=== PATIENT | female | born 1965 | race Caucasian/White ===

== ENCOUNTER 2016-06-15 12:58 | Emergency (ER) | payer OTHER ==
--- NOTE | 2016-06-15 15:44 | DIAGNOSTIC IMAGING REPORT ---
PROCEDURE: XR CHEST 2 VIEW INDICATION: SHORTNESS OF BREATH, initial encounter TECHNIQUE: PA and lateral view. COMPARISON: Chest x-ray 03/18/2014 FINDINGS: Small right basilar infiltrate. Cardiovascular structures are normal. Bony thorax is unremarkable. IMPRESSION: 1. Small right basilar infiltrate
--- NOTE | 2016-06-15 17:28 | DIAGNOSTIC IMAGING REPORT ---
PROCEDURE: CTA THORAX WITH CONTRAST INDICATION: SHORTNESS OF BREATH, initial encounter TECHNIQUE: 80 ml of Isovue 370 was injected intravenously and axial images were obtained of the entire thorax with 3D sagittal and coronal MIP reconstructions. COMPARISON: Chest x-ray 06/15/2016 FINDINGS: No evidence of pulmonary emboli. Mild emphysema. Small patchy infiltrates bilaterally suggestive of pneumonia. Mildly prominent mediastinal and hilar lymph nodes. There is no effusion. Mild atherosclerosis of the aorta but no dissection or aneurysm. Normal heart size. Visualized upper abdomen is unremarkable. Mild degenerative changes of the spine. IMPRESSION: 1. No evidence of prior emboli 2. Mild emphysema 3. Small bilateral patchy infiltrate suggestive of pneumonia 4. Results discussed with Dr. Jean
--- NOTE | 2016-06-15 18:39 | ED NURSING NOTES ---
Clinical Report - Nurses [facility] [address] [place] [address] 06/15/2016 12:58 Patient: RIANA HYDE TRIAGE Triage time 1328 PM. Acuity: LEVEL 4. Chief Complaint: SHORTNESS OF BREATH, DIFFICULTY BREATHING and WHEEZING and COUGH, FEVER, CHILLS and CHEST PAIN (right side rib pain). Alert. No acute distress. MANGO COMA SCORE: Mango Coma Scale: 15- eyes open spontaneously (4); best verbal response- oriented x 4 (5); best motor response- obeys commands (6). --13:40 Sushila Gardner R.N. 13:28 06/15/16. BP: 158/89. HR: 101. RR: 22. O2 saturation: 100%. Temp: 99.2 F (oral). Pain level now: 02/18. Additional comments: right sided. --13:40 Sushila Gardner R.N. Weight: 56.6 kg stated. Height/Length: 66 inches Per Patient. BMI: 20.1. --13:32 Sushila Gardner R.N. Medications Albuterol Sulfate HFA Inhalation. Albuterol Sulfate Inhalation. Neurontin Oral 200 mg am and 300 mg pm. --13:32 Sushila Gardner R.N. Qvar Inhalation. --13:35 Sushila Gardner R.N. HydrOXYzine HCl Oral. --13:35 Sushila Gardner R.N. Citalopram Hydrobromide Oral. --13:36 Sushila Gardner R.N. Medication/allergy information source: the patient. --13:40 Sushila Gardner R.N. Allergies Codeine. Definite Severe(Anaphylaxis) Neomycin Sulfate. Definite Severe(Anaphylaxis) --13:32 Sushila Gardner R.N. PCN. Definite Severe(Anaphylaxis) --13:32 Sushila Gardner R.N. History Arrived by private vehicle. Historian: patient. Primary physician (Dr. Lynch). ( Pt states has COPD, bronchitis for about 2 months, went to Dr. Lynch 3 weeks ago, received antibiotics, since last night coughing has gotten worse, wheezing/SOB productive yellow sputum "foam like" has taken her albuterol/Qvar. Pt as of last night experiencing pain of the right-mid side of her "chest" area, gets aggravated when moving and coughing. Here for evaluation). This started last night. She has had fever, chills, a cough and wheezing. She has had sharp central and right-sided chest pain. No radiation, modifying factors or associated symptoms. ( Pain on her mid-right side when coughing and moving as per patient). Treatment [employer]: (albuterol and steroid). PAST MEDICAL HX: Immunizations: up-to-date. SOCIAL HX: Light tobacco smoker (cigarette). History of drug use: marijuana. Recently used drugs days ago. (3). No alcohol use. No infectious disease exposure. ABUSE ASSESSMENT: No report of abuse. SELF HARM ASSESSMENT: A self harm assessment was performed. The patient answered "no" to the question "Do you have thoughts of harming or killing yourself?" and "Have you recently had thoughts about harming or killing others?". FALL RISK ASSESSMENT: Fall risk assessment completed. No fall risk identified. NUTRITIONAL RISK ASSESSMENT: The nutritional risk assessment revealed no deficiencies. FUNCTIONAL ASSESSMENT: Functional assessment: no impairments noted. LEARNING NEEDS ASSESSMENT: The learning needs assessment revealed no barriers. SKIN INTEGRITY ASSESSMENT: Skin integrity risk assessment completed. No skin integrity risk identified. --13:40 Sushila Gardner R.N. PROBLEMS: Abscess. Abrasion(s). Puncture Wound. Animal Bite. Tetanus Status. Anxiety Reaction. Bronchitis. COPD - Chronic Obstructive Pulmonary Disease. Lung Disease. Immunizations. LNMP - Last Normal Menstrual Period. --13:32 Sushila Gardner R.N. ADDITIONAL SURGERIES: . Fracture Repair. Left arm surgery. --13:32 Sushila Gardner R.N. Interventions ID band on patient. --13:40 Sushila Gardner R.N. PHYSICAL ASSESSMENT Ambulatory to room. GENERAL / NEURO / PSYCH: Alert. Oriented X 4. Appears in no acute distress. HEENT: Mucous membranes are pink. RESPIRATORY: Mild respiratory distress. The patient can speak a few words at a time. Accessory muscle use. Expiratory and inspiratory wheezes in the right and left lung base posteriorly and mid-lung posteriorly. CVS: Capillary refill less than 2 seconds. SKIN: Skin is warm and dry. Normal skin turgor. --13:41 Sushila Gardner R.N. NURSING PROGRESS NOTES The plan of care for this patient has been created This plan of care was discussed with the patient. Pulse oximeter placed on patient. Patient gowned. Reassurance given. Two patient identifiers checked. Call light placed in reach. Side rails up x 1. Bed placed in lowest position. Brakes of bed on. Brakes of chair on. --13:41 Sushila Gardner R.N. 13:41 06/15/16. O2 saturation: 96%. --13:41 Sushila Gardner R.N. 14:12 06/15/2016 Duoneb (Ipratropium-Albuterol) Neb TX Nebulizer 1 unit dose given. Given by the respiratory therapist. Allergies verified and confirmed 5 rights. --14:12 Marion Wilkins 14:37 06/15/2016 Site #1 started via IV in the left forearm with an 20g angiocath; one attempt. Blood drawn: rainbow set and cultures x1. Labeled in the presence of the patient and sent to the lab. Saline lock flushed. --14:37 Sushila Gardner R.N. 14:37 06/15/2016 Toradol IVP 30 mg given over 1 minute(s) via site #1. Allergies verified and confirmed 5 rights. IV patency established. IV site checked: no pain, redness, or swelling. IV flushed thoroughly pre- and post-medication administration. IVP given by RN. --14:37 Sushila Gardner R.N. 14:37 06/15/2016 Started bag #1 1000 mL IV Fluids IV NS (Saline); at 500 mL/hr over 1 hour(s) via site #1 via dial-a-flow. Allergies verified and confirmed 5 rights. IV patency established. IV site checked: no pain, redness, or swelling. IV flushed thoroughly pre- and post-medication administration. --14:37 Sushila Gardner R.N. Pulse oximeter placed on patient. Patient ID band checked for patient name, birthdate and medical record number: patient confirmed. Blood samples drawn from the right forearm peripheral IV site by nurse per protocol and sent to lab: [facility]. Portable chest x-ray performed. Reassurance given. Patient ID band checked for patient name, birthdate and medical record number: patient confirmed. Flu swab obtained by RN via nasal swab. Labeled in the presence of the patient and sent to lab. The patient is resting quietly. Overall patient status is improved- she states feels better. RESPIRATORY: Expiratory and inspiratory bilateral wheezes in the bases. Two patient identifiers checked. Call light placed in reach. Side rails up x 1. Brakes of bed on. Brakes of chair on. --14:39 Sushila Gardner R.N. 14:37 06/15/16. RR: 18. O2 saturation: 100% on room air. --14:39 Sushila Gardner R.N. 15:45 06/15/16. BP: 313/79. HR: 92. RR: 15. O2 saturation: 100% on room air. Temp: 99.2 F. Pain level now: 09/18. --15:46 Sushila Gardner R.N. Pulse oximeter placed on patient. Reassurance given. Reassessment after fluids administered and medication administered. She is resting quietly and has had no adverse reaction. Overall patient status is improved- she states feels better. RESPIRATORY: No respiratory distress present. No respiratory distress. Expiratory wheezes present. SKIN: Skin is warm and dry. Two patient identifiers checked. Call light placed in reach. Side rails up x 1. Bed placed in lowest position. Brakes of bed on. Brakes of chair on. --15:46 Sushila Gardner R.N. 16:35 06/15/2016 Site #1 removed upon admission. Catheter intact. Manual pressure, bandaid and bandage applied (vein blew). --16:36 Sushila Gardner R.N. 16:36 06/15/2016 Site #2 started via IV in the right forearm with an 20g angiocath; one attempt. Saline lock flushed with 10 mL saline. --16:36 Sushila Gardner R.N. 16:00 06/15/16. BP: 119/77. HR: 89. RR: 18. O2 saturation: 97% on room air. Pain level now: 11/18. --16:37 Sushila Gardner R.N. Pulse oximeter placed on patient. Reassurance given. The patient is calm. Overall patient status is the same- she states feels the same. ( right IV blew/ new line started awaiting on CT. Still experiencing pain 11/18). SKIN: Skin is warm. Two patient identifiers checked. Call light placed in reach. Side rails up x 1. Brakes of bed on. Brakes of chair on. --16:37 Sushila Gardner R.N. 18:22 06/15/2016 Toradol IVP Response: no adverse reaction pain is improving. --18:37 Sushila Gardner R.N. 18:36 06/15/2016 Started 750 mg of Levaquin (Levofloxacin) IVPB in bag #1 100 mL; at 100 mL/hr over 1.5 hour(s) via site #2 via IV pump. Allergies verified and confirmed 5 rights. IV patency established. IV site checked: no pain, redness, or swelling. IV flushed thoroughly pre- and post-medication administration. --18:36 Sushila Gardner R.N. 18:37 06/15/2016 Dilaudid (HYDROmorphone HCl PF) IVP 0.5 mg given over 1 minute(s) via site #2. Allergies verified, confirmed 5 rights and sedative warning given to the patient. IV patency established. IV site checked: no pain, redness, or swelling. IV flushed thoroughly pre- and post-medication administration. IVP given by RN. --18:37 Sushila Gardner R.N. Reassurance given. The patient is calm. Overall patient status is the same- she states feels the same. ( Levoquin infusing, dilaudid given for pain.). RESPIRATORY: Respiratory distress present. Expiratory bilateral wheezes in the bases. Two patient identifiers checked. Call light placed in reach. --18:40 Sushila Gardner R.N. 18:37 06/15/16. BP: 123/78 (regular adult cuff) taken on the left arm, via an automated monitor, while lying. HR: 81. RR: 15. O2 saturation: 95%. Temp: 98.3 F (oral). Pain level now: 10/19. --18:40 Sushila Gardner R.N. 19:00 06/15/16. BP: 129/61. HR: 88. RR: 20. O2 saturation: 96% on room air. Temp: 98.2 F. Pain level now: 09/18. --19:11 Sushila Gardner R.N. Reassurance given. The patient is calm. Overall patient status is improved- she states feels better. ( Discharge instructions reviewed, IV ABX infusing, once done pt may go home). Two patient identifiers checked. Call light placed in reach. Bed placed in lowest position. Brakes of bed on. Brakes of chair on. --19:11 Sushila Gardner R.N. 19:44 06/15/2016 IV Fluids IV NS Discontinued: bag #1 completed upon discharge. Total amount infused: 1000 mL. IV patency established. IV site checked: no pain, redness, or swelling. IV flushed thoroughly. --20:09 Sushila Gardner R.N. 19:58 06/15/2016 Dilaudid IVP Response: no adverse reaction pain is improving. --20:08 Sushila Gardner R.N. 20:03 06/15/2016 Levaquin IVPB Discontinued: bag #1 completed upon discharge. Total amount infused: 100 mL. IV patency established. IV site checked: no pain, redness, or swelling. IV flushed thoroughly. --20:08 Sushila Gardner R.N. DISPOSITION / DISCHARGE 20:03 06/15/2016 Site #2 removed upon discharge. Manual pressure, pressure dressing and bandaid applied. --20:06 Sushila Gardner R.N. Departure time: 2007 PM. Condition at departure: improved and stable. The goals identified in the patient's plan of care were met. No learning barriers present. Discharge instructions provided and reviewed with the patient. Reviewed medication(s) side effects, precautions, dosing and course information. Prescription(s) given to the patient. Reviewed need for increased fluid intake. Activity restrictions (rest) reviewed. Patient and family verbalized understanding. Written instructions provided in Gabonese. The patient was discharged by the physician. She was discharged home and accompanied by family. She left the Emergency Department ambulatory and via private vehicle. Family member driving. FALL RISK ASSESSMENT: Fall risk assessment completed. No fall risk identified. --20:08 Sushila Gardner R.N. 20:02 06/15/16. BP: 113/72 (regular adult cuff) taken on the left arm, via an automated monitor, while sitting. HR: 89. RR: 20. O2 saturation: 96% on room air. Temp: 98.2 F (oral). Pain level now: 09/18. --20:08 Sushila Gardner R.N. Locked/Released at 06/15/2016 20:09 by Sushila Gardner R.N.
--- NOTE | 2016-06-15 18:39 | ED CLINICAL REPORT ---
Clinical Report - Physicians/Mid Levels [facility] [address] [place] [address] 06/15/2016 12:58 Patient: RIANA HYDE Time Seen: 13:46 Jun 15 2016. Arrived- By private vehicle. Historian- patient. CPT: ER phys charges level 5 (#[id number]). HISTORY OF PRESENT ILLNESS Chief Complaint: COUGH. This started today SHORTNESS OF BREATH, DIFFICULTY BREATHING and WHEEZING and COUGH, FEVER, CHILLS and CHEST PAIN (right side rib pain). ( Pt states has COPD, bronchitis for about 2 months, went to Dr. Lynch 3 weeks ago, received antibiotics, since last night coughing has gotten worse, wheezing/SOB productive yellow sputum "foam like" has taken her albuterol/Qvar. Pt as of last night experiencing pain of the right-mid side of her "chest" area, gets aggravated when moving and coughing. Here for evaluation). This started last night. She has had fever, chills, a cough and wheezing. She has had sharp central and right-sided chest pain. No radiation, modifying factors or associated symptoms. ( Pain on her mid-right side when coughing and moving as per patient). and is still present. The illness is described as moderate. The patient has had sputum production, a cough, chest discomfort and difficulty breathing. No fever, muscle aches, chills, sore throat or hoarseness. No nasal congestion or discharge or sinus pressure. Similar symptoms previously: Recent medical care: The patient was seen recently at another facility in the office. REVIEW OF SYSTEMS No headache, nausea, vomiting, diarrhea or abdominal pain. No hay fever, pedal edema, calf pain, difficulty with urination or skin rash. No enlarged lymph nodes. All systems otherwise negative, except as recorded above. PAST HISTORY Abscess. Abrasion(s). Puncture Wound. Animal Bite. Tetanus Status. Anxiety Reaction. Bronchitis. COPD - Chronic Obstructive Pulmonary Disease. Lung Disease. Immunizations. LNMP - Last Normal Menstrual Period. ADDITIONAL SURGERIES: . Fracture Repair. Left arm surgery. Medications: Citalopram Hydrobromide Oral. HydrOXYzine HCl Oral. Qvar Inhalation. Albuterol Sulfate HFA Inhalation. Albuterol Sulfate Inhalation. Neurontin Oral 200 mg am and 300 mg pm. Allergies: Codeine. Definite Severe(Anaphylaxis) Neomycin Sulfate. Definite Severe(Anaphylaxis) PCN. Definite Severe(Anaphylaxis). SOCIAL HISTORY Light tobacco smoker (cigarette)- less than 1/2 a pack per day. History of occasional drug use: marijuana. No alcohol use. ADDITIONAL NOTES The nursing notes have been reviewed. PHYSICAL EXAM Vital Signs: 06/15/2016 13:28 BP: 158/89. HR: 101. RR: 22. O2 saturation: 100%. Temp: 99.2 F. Pain level now: 02/18. Appearance: Alert. Patient in mild distress. Eyes: Eyes normal inspection. ENT: Pharynx normal. Uvula midline. Neck: Normal inspection. CVS: Normal heart rate and rhythm. Heart sounds normal. Pulses normal. Abdomen: Soft and nontender. Back: Normal inspection. Skin: Skin warm. Normal skin color. No rash. Extremities: Extremities exhibit normal ROM. No lower extremity edema. Neuro: Oriented X 3. No motor deficit. No sensory deficit. LABS, X-RAYS, AND EKG Chest X-ray: (Question of lesion right middle lobe.). Views: PA and lateral. Technique: good. The X-rays were independently viewed by me and interpreted contemporaneously by me. Prior films were not available for comparison. Chest CT: Patchy infiltrate in the right upper lobe and right lower lobe and left upper lobe and left lower lobe. Consistent with pneumonia. Great vessels normal. Mediastinum normal. No aortic aneurysm present or pulmonary embolism. Chest CT performed with contrast. The study was independently viewed by me, interpreted by the radiologist and discussed with the radiologist. Laboratory Tests: CBC w Diff: (SRIDEVI: 06/15/2016 14:25) ( MsgRcvd 06/15/2016 14:54) Final results Test Result Flag Units (Reference) WHITE BLOOD COUNT 11.4 K/uL (4.5-11.5) RED BLOOD COUNT 4.45 M/uL (4.00-5.20) HEMOGLOBIN 13.0 gm/dL (12.0-16.0) HEMATOCRIT 38.5 % (36.0-46.0) MEAN CELL VOLUME 87 fL (80-100) MEAN CORPUSCULAR HGB 29 pg (26-34) MEAN CORPUSCULAR HGB CONC 34 g/dL (31-37) RED CELL DISTRIBUTION WIDTH 12.5 % (11.6-14.8) PLATELET COUNT 218 K/uL (150-400) NEUTROPHIL % 80.1 H % (50-75) LYMPH % 10.7 L % (25-40) MONO % 7.7 % (3-14) EOSINOPHIL % 1.3 % (0-4) BASOPHIL % 0.2 % (0-2) [id number]: (SRIDEVI: 06/15/2016 14:25) ( [facility] 06/15/2016 14:54) Final results Test Result Flag Units (Reference) D-DIMER QUANTITATIVE 0.82 H ug/mLFEU (0.27-0.52) The primary value of this quantitative assay relates toits negative predictive value (i.e. exclusion) of pulmonaryembolism/deep vein thrombosis/DIC.Elevated levels of d-dimer may also occur with:, age, cancer, inflammation, liver disease,post-op, infection, hematoma, coronary disease, peripheralarteriopathy, bleeding disorders and thrombolytic treatment.Results should be correlated with other clinical andradiological data.Testing Methodology: Latex Immunoassay BNP: (SRIDEVI: 06/15/2016 14:25) ( [facility] 06/15/2016 15:09) Final results Test Result Flag Units (Reference) B-TYPE NATRIURETIC PEPTIDE 15.5 pg/ml (5-100) CMP: (SRIDEVI: 06/15/2016 14:25) ( [facility] 06/15/2016 15:10) Final results Test Result Flag Units (Reference) GLUCOSE 97 mg/dL (70-110) BUN 14 mg/dL (7-18) CREATININE 0.8 mg/dL (0.6-1.3) Estimated GFR >60 mL/min Estimated GFR- >60 mL/min Note: Persistent reduction over 3 months in eGFR<60 mL/min/1.73 m2 defines CKD. Patients with eGFR values>=60 mL/min/1.73 m2 may also have CKD if evidence ofpersistent proteinuria. Additional information may be foundat [email or web address].org. SODIUM 135 L mmol/L (136-145) POTASSIUM 4.0 mmol/L (3.5-5.1) CHLORIDE 98 mmol/L (98-107) CARBON DIOXIDE 26 mmol/L (21-32) CALCIUM 9.3 mg/dL (8.5-10.1) TOTAL PROTEIN 8.0 g/dL (6.4-8.2) ALBUMIN 3.7 g/dL (3.3-5.0) BILIRUBIN, TOTAL 1.1 H mg/dL (0.0-1.0) ALKALINE PHOSPHATASE 99 U/L (46-116) AST (SGOT) 19 U/L (15-37) ALT (SGPT) 27 U/L (12-78) Rapid Influenza Screen: (SRIDEVI: 06/15/2016 14:25) ( MsgRcvd 06/15/2016 15:17) Final results SPECIMEN DESCRIPTION: SWAB Test Result Flag Units (Reference) RAPID INFLUENZA SCREEN DATE: 06/15/16 INFLUENZA A: NEGATIVE SCREEN FOR INFLUENZA A INFLUENZA B: NEGATIVE SCREEN FOR INFLUENZA B . PROGRESS AND PROCEDURES Course of Care: 17:29 06/15/16. CT report called. Dx Pneumonia. BC times 1 Levaquin 750 mg IV. Patient/family counseled. Disposition: Discharged. Condition: stable. CLINICAL IMPRESSION Bacterial bronchopneumonia. Atypical presentation with a delayed diagnosis. Vital signs recorded and reviewed; empiric antibiotics given in the ED. No hypoxemia. Pleurisy right side due to pneumonia. INSTRUCTIONS No strenuous activity. Rest. Drink plenty of fluids. (Incentive spirometry 3 times a day. Deep breath every hour.). Your Current Medications: CONTINUE TAKING THE FOLLOWING MEDICATIONS: Albuterol Sulfate HFA Inhalation. Albuterol Sulfate Inhalation. Citalopram Hydrobromide Oral. HydrOXYzine HCl Oral. Neurontin Oral : 200 mg am and 300 mg pm. Qvar Inhalation. Prescription Medications: Levaquin 750 mg: take 1 tab orally every day for 10 days. No refills. Substitution is permissible. Septra DS: take 1 tablet orally every 12 hours for 10 days. No refill. Substitution is not permissible. Oxycodone/APAP 5 mg/325 mg: take 1-2 tablets orally every 4 hours as needed for pain. Dispense twenty-five (25). No refill. (Watch for constipation) Ibuprofen 600mg tablets: take 1 tablet orally every 8 hours as needed for pain. Dispense thirty (30). No refills. Follow-up: Follow up with your doctor in five days. Call for an appointment. Understanding of the discharge instructions verbalized by patient. (Electronically signed by Telly Jean MD 06/18/2016 23:21)
--- NOTE | 2016-06-15 18:39 | ED ORDER SUMMARY ---
..... Patient: RIANA HYDE OrderSheet [facility] VisitID: [id number] [place] [address] 51y, F Registration Date/Time: 06/15/2016 ORDER SHEET Weight: 56.6 kg (stated) Allergies: Codeine, Neomycin Sulfate, PCN GENERAL ORDERS: Blood Culture (No) (N/A) Urgent (13:52 06/15/2016 Ritesh AN) (Ack 13:56 Vickey) (14:05 EHassan R.N.) Rapid Influenza Screen (Nasal Pharyngeal) (swab) Urgent (13:53 06/15/2016 Ritesh AN) (Ack 13:56 Vickey) (14:05 EHassan R.N.) CBC w Diff Urgent (13:53 06/15/2016 Ritesh AN) (Ack 13:56 Vickey) (14:05 EHassan R.N.) CMP Urgent (13:53 06/15/2016 Ritesh AN) (Ack 13:56 Vickey) (14:05 TORREYassaboston R.N.) BNP Urgent (13:53 06/15/2016 Ritesh AN) (Ack 13:56 Vickey) (14:05 EHassan R.N.) D-Dimer Urgent (13:53 06/15/2016 Ritesh AN) (Ack 13:56 Vickey) (14:05 EHassan R.N.) Chest 2V Urgent (13:53 06/15/2016 Ritesh AN) (Ack 13:56 Vickey) (14:05 EHassan R.N.) CTA Thorax w Cont (No) (N/A) Urgent (15:48 06/15/2016 Ritesh AN) (Ack 15:59 TBergley) (18:02 TBergley) PCT (Procalcitonin) Urgent (17:38 06/15/2016 Ritesh AN) (Ack 17:54 TBergley) (18:04 TBergley) Lactate, Serum Urgent (17:38 06/15/2016 Ritesh AN) (Ack 17:54 TBergley) (18:04 TBergley) MEDICATION ORDERS: DuoNeb Neb Tx 1 unit dose (NOW) (13:54 06/15/2016 Ritesh AN) (14:12 Анна) IV FLUIDS: IV NS : initial bolus 500 mL (1000 mL/hr), then 150 mL/hr for 4h (NOW); Routine (13:52 06/15/2016 Ritesh AN) (14:37 Karin R.N.) Toradol IV 30 mg (NOW) (13:54 06/15/2016 Ritesh AN) (14:37 Karin R.N.) Levaquin IV 750 mg/150 mL (NOW) (17:29 06/15/2016 Ritesh AN) (18:36 Karin R.N.) Dilaudid IV 0.5 mg (NOW) (17:37 06/15/2016 Ritesh AN) (18:37 Karin R.N.) ORDER SHEET NOTES: [Electronically signed by Sushila Gardner R.N. (20:09 06/15/2016)] [Electronically signed by Telly Jean MD (23:21 06/18/2016)] [Electronically locked/signed by Sushila Gardner R.N. (20:09 06/15/2016)]
--- NOTE | 2016-06-15 18:39 | ED ORDER SUMMARY ---
..... Patient: RIANA HYDE OrderSheet [facility] VisitID: [id number] [place] [address] 51y, F Registration Date/Time: 06/15/2016 ORDER SHEET Weight: 56.6 kg (stated) Allergies: Codeine, Neomycin Sulfate, PCN GENERAL ORDERS: Blood Culture (No) (N/A) Urgent (13:52 06/15/2016 Ritesh AN) (Ack 13:56 Vickey) (14:05 EHassan R.N.) Rapid Influenza Screen (Nasal Pharyngeal) (swab) Urgent (13:53 06/15/2016 Ritesh AN) (Ack 13:56 Vickey) (14:05 EHassan R.N.) CBC w Diff Urgent (13:53 06/15/2016 Ritesh AN) (Ack 13:56 Vickey) (14:05 EHassan R.N.) CMP Urgent (13:53 06/15/2016 Ritesh AN) (Ack 13:56 Vickey) (14:05 TORREYassaboston R.N.) BNP Urgent (13:53 06/15/2016 Ritesh AN) (Ack 13:56 Vickey) (14:05 EHassan R.N.) D-Dimer Urgent (13:53 06/15/2016 Ritesh AN) (Ack 13:56 Vickey) (14:05 EHassan R.N.) Chest 2V Urgent (13:53 06/15/2016 Ritesh AN) (Ack 13:56 Vickey) (14:05 EHassan R.N.) CTA Thorax w Cont (No) (N/A) Urgent (15:48 06/15/2016 Ritesh AN) (Ack 15:59 TBergley) (18:02 TBergley) PCT (Procalcitonin) Urgent (17:38 06/15/2016 Ritesh AN) (Ack 17:54 TBergley) (18:04 TBergley) Lactate, Serum Urgent (17:38 06/15/2016 Ritesh AN) (Ack 17:54 TBergley) (18:04 TBergley) MEDICATION ORDERS: DuoNeb Neb Tx 1 unit dose (NOW) (13:54 06/15/2016 Ritesh AN) (14:12 Анна) IV FLUIDS: IV NS : initial bolus 500 mL (1000 mL/hr), then 150 mL/hr for 4h (NOW); Routine (13:52 06/15/2016 Ritesh AN) (14:37 Karin R.N.) Toradol IV 30 mg (NOW) (13:54 06/15/2016 Ritesh AN) (14:37 Karin R.N.) Levaquin IV 750 mg/150 mL (NOW) (17:29 06/15/2016 Ritesh AN) (18:36 Karin R.N.) Dilaudid IV 0.5 mg (NOW) (17:37 06/15/2016 Ritesh AN) (18:37 Karin R.N.) ORDER SHEET NOTES: [Electronically signed by Sushila Gardner R.N. (20:09 06/15/2016)] [Electronically signed by Telly Jean MD (23:21 06/18/2016)] [Electronically locked/signed by Sushila Gardner R.N. (20:09 06/15/2016)]
--- NOTE | 2016-06-18 23:21 | ED MAR SUMMARY ---
..... Medication Administration Record [facility] [address] [place] [address] Patient: RIANA HYDE Visit ID: [id number] 51y, F Weight: 56.6 kg Height/Length: 66 in BMI: 20.1 ALLERGIES: Codeine, Neomycin Sulfate, PCN Given 14:12 06/15/2016 Marion Wilkins, Medication Administered: DUONEB [NEB TX] (IPRATROPIUM-ALBUTEROL), Dose: 1 unit dose Nebulizer Neb TX. Medication Ordered: DuoNeb Neb Tx 1 unit dose (NOW). Given 14:37 06/15/2016 Sushila Gardner R.N. Medication Administered: TORADOL [IVP], Dose: 30 mg IVP over 1 minute(s), Site: #1 left forearm. Medication Ordered: Toradol IV 30 mg (NOW). Start 14:37 06/15/2016 Sushila Gardner R.N., Stop 19:44 06/15/2016 Sushila Gardner R.N. Medication Administered: IV NS (SALINE), Dose: IV Fluids over 1 hour(s), Rate: 500 mL/hr, Dispensed: 1000 mL bag, Site: #1 left forearm. Medication Ordered: IV NS : initial bolus 500 mL (1000 mL/hr), then 150 mL/hr for 4h (NOW); Routine. Start 18:36 06/15/2016 Sushila Gardner R.N., Stop 20:03 06/15/2016 Sushila Gardner R.N. Medication Administered: LEVAQUIN [IVPB] (LEVOFLOXACIN), Dose: 750 mg IVPB over 1.5 hour(s), Rate: 100 mL/hr, Dispensed: 100 mL bag, Site: #2 right forearm. Medication Ordered: Levaquin IV 750 mg/150 mL (NOW). Given 18:37 06/15/2016 Sushila Gardner R.N. Medication Administered: DILAUDID [IVP] (HYDROMORPHONE HCL PF), Dose: 0.5 mg IVP over 1 minute(s), Site: #2 right forearm. Medication Ordered: Dilaudid IV 0.5 mg (NOW).
--- NOTE | 2016-06-18 23:21 | ED MED RECONCILIATION SUMMARY ---
Patient: RIANA HYDE Medication Reconciliation Report [facility] VisitID: [id number] [address] [place] [address] 51y, F Registration Date/Time: 06/15/2016 Weight: 56.6 kg Height/Length: 66 in. BMI: 20.1 ALLERGIES: Codeine, Neomycin Sulfate, PCN The patient's Home Medications are listed below: CONTINUE TAKING THE FOLLOWING MEDICATIONS: Albuterol Sulfate HFA Inhalation Albuterol Sulfate Inhalation Citalopram Hydrobromide Oral HydrOXYzine HCl Oral Neurontin Oral 200 mg am and 300 mg pm Qvar Inhalation The source(s) of the original Home Medication information: patient The following Medications were given to the patient in the Emergency Department: Duoneb [Neb Tx] Neb TX 1 unit dose, administered: 06/15/2016 2:12:00 PM Toradol [IVP] IVP 30 mg, administered: 06/15/2016 2:37:00 PM IV NS IV Fluids bolus 0, then 500 mL/hr, administered: 06/15/2016 2:37:00 PM Levaquin [IVPB] IVPB bolus 0, then 750 mg 100 mL/hr, administered: 06/15/2016 6:36:00 PM Dilaudid [IVP] IVP 0.5 mg, administered: 06/15/2016 6:37:00 PM The following Medications were prescribed to the patient: Levaquin 750 mg: take 1 tab orally every day for 10 days. No refills. Substitution is permissible. -- Telly Jean MD Septra DS: take 1 tablet orally every 12 hours for 10 days. No refill. Substitution is not permissible. -- Telly Jean MD Oxycodone/APAP 5 mg/325 mg: take 1-2 tablets orally every 4 hours as needed for pain. Dispense twenty-five (25). No refill.(Watch for constipation) -- Telly Jean MD Ibuprofen 600mg tablets: take 1 tablet orally every 8 hours as needed for pain. Dispense thirty (30). No refills. -- Telly Jean MD
--- NOTE | 2016-06-18 23:21 | ED DISCHARGE INSTRUCTIONS ---
Patient: RIANA HYDE General Instructions [facility] VisitID: [id number] [place] [address] 51y, F Registration Date/Time: 06/15/2016 Bacterial bronchopneumonia. Atypical presentation with a delayed diagnosis. Vital signs recorded and reviewed; empiric antibiotics given in the ED. No hypoxemia. Pleurisy right side due to pneumonia. INSTRUCTIONS No strenuous activity. Rest. Drink plenty of fluids. (Incentive spirometry 3 times a day. Deep breath every hour.). Your Current Medications: CONTINUE TAKING THE FOLLOWING MEDICATIONS: Albuterol Sulfate HFA Inhalation. Albuterol Sulfate Inhalation. Citalopram Hydrobromide Oral. HydrOXYzine HCl Oral. Neurontin Oral : 200 mg am and 300 mg pm. Qvar Inhalation. Prescription Medications: Levaquin 750 mg: take 1 tab orally every day for 10 days. No refills. Substitution is permissible. Septra DS: take 1 tablet orally every 12 hours for 10 days. No refill. Substitution is not permissible. Oxycodone/APAP 5 mg/325 mg: take 1-2 tablets orally every 4 hours as needed for pain. Dispense twenty-five (25). No refill. (Watch for constipation) Ibuprofen 600mg tablets: take 1 tablet orally every 8 hours as needed for pain. Dispense thirty (30). No refills. Follow-up: Follow up with your doctor in five days. Call for an appointment. Understanding of the discharge instructions verbalized by patient. ADDITIONAL INFORMATION Pneumonia (Adult) Pneumonia is an infection deep within the lung, in the small air sacs (alveoli). It may be due to a virus or bacteria and is usually treated with an antibiotic. Severe cases require treatment in the hospital. Milder cases can be treated at home. Symptoms usually start to improve during the first2 days of treatment. Home Care: Rest at home for the first 23 days or until you feel stronger. When resuming activity, dont let yourself become overly tired. Avoid exposure to cigarette smoke (yours or others). You may use acetaminophen (Tylenol) or ibuprofen (Motrin, Advil) to control fever or pain, unless another medicine was prescribed. [NOTE: If you have chronic liver or kidney disease or ever had a stomach ulcer or GI bleeding, talk with your doctor before using these medicines.] (Aspirin should never be used in anyone under 18 years of age who is ill with a fever. It may cause severe liver damage.) Your appetite may be poor so a light diet is fine. Keep well hydrated by drinking 68 glasses of fluids per day (water, sport drinks such as Gatorade, sodas without caffeine, juices, tea, soup, etc.). This will help loosen secretions in the lung, making it easier for you to cough up the phlegm (sputum). If you also have heart or kidney disease, check with your doctor before you drink extra amounts of fluids. Finish all antibiotic medicine prescribed, even if you are feeling better after a few days. Follow Up with your doctor in the next 23 days (or as advised) to be sure you are responding properly to the medicine. [NOTE: If you are age 65 or older, or if you have chronic lung disease (asthma, emphysema or COPD), we recommendthe pneumococcal vaccination and a yearlyinfluenzavaccination(flu-shot) every . Ask your doctor about this.] Get Prompt Medical Attention if any of the following occur: Not getting better within the first 48 hours of treatment Increasing shortness of breath or rapid breathing (over 25 breaths/minute) Coughing up blood or increasing chest pain with breathing Fever of 100.4F (38C) oral or higher, not better with fever medication Increasing weakness, dizziness or fainting Increasing thirst or dry mouth Sinus pain, headache or a stiff neck Chest pain not caused by coughing Levofloxacin Oral tablet What is this medicine? LEVOFLOXACIN (tod walden) is a quinolone antibiotic. It is used to treat certain kinds of bacterial infections. It will not work for colds, flu, or other viral infections. How should I use this medicine? Take this medicine by mouth with a full glass of water. Follow the directions on the prescription label. This medicine can be taken with or without food. Take your medicine at regular intervals. Do not take your medicine more often than directed. Do not skip doses or stop your medicine early even if you feel better. Do not stop taking except on your doctor's advice. A special MedGuide will be given to you by the pharmacist with each prescription and refill. Be sure to read this information carefully each time. Talk to your lease examiner regarding the use of this medicine in children. While this drug may be prescribed for children as young as 6 months for selected conditions, precautions do apply. What side effects may I notice from receiving this medicine? Side effects that you should report to your doctor or health long term care social worker as soon as possible: -allergic reactions like skin rash or hives, swelling of the face, lips, or tongue -changes in vision -confusion, nightmares or hallucinations -difficulty breathing -irregular heartbeat, chest pain -joint, muscle or tendon pain -pain or difficulty passing urine -persistent headache with or without blurred vision -redness, blistering, peeling or loosening of the skin, including inside the mouth -seizures -unusual pain, numbness, tingling, or weakness -vaginal irritation, discharge Side effects that usually do not require medical attention (report to your doctor or health long term care social worker if they continue or are bothersome): -diarrhea -dry mouth -headache -stomach upset, nausea -trouble sleeping What may interact with this medicine? Do not take this medicine with any of the following medications: - arsenic trioxide - chloroquine - droperidol - medicines for irregular heart rhythm like amiodarone, disopyramide, dofetilide, flecainide, quinidine, procainamide, sotalol - some medicines for depression or mental problems like phenothiazines, pimozide, and ziprasidone This medicine may also interact with the following medications: - amoxapine -antacids - cisapride - dairy products - didanosine (ddI) buffered tablets or powder - haloperidol - multivitamins -NSAIDS, medicines for pain and inflammation, like ibuprofen or naproxen - retinoid products like tretinoin or isotretinoin - risperidone - some other antibiotics like clarithromycin or erythromycin - sucralfate - theophylline - warfarin What if I miss a dose? If you miss a dose, take it as soon as you remember. If it is almost time for your next dose, take only that dose. Do not take double or extra doses. Where should I keep my medicine? Keep out of the reach of children. Store at room temperature between 15 and 30 degrees C (59 and 86 degrees F). Keep in a tightly closed container. Throw away any unused medicine after the expiration date. What should I tell my health care provider before I take this medicine? They need to know if you have any of these conditions: cerebral disease irregular heartbeat kidney disease seizure disorder an unusual or allergic reaction to levofloxacin, other antibiotics or medicines, foods, dyes, or preservatives or trying to get breast-feeding What should I watch for while using this medicine? Tell your doctor or health long term care social worker if your symptoms do not improve or if they get worse. Drink several glasses of water a day and cut down on drinks that contain caffeine. You must not get dehydrated while taking this medicine. You may get drowsy or dizzy. Do not drive, use machinery, or do anything that needs mental alertness until you know how this medicine affects you. Do not sit or stand up quickly, especially if you are an older patient. This reduces the risk of dizzy or fainting spells. This medicine can make you more sensitive to the sun. Keep out of the sun. If you cannot avoid being in the sun, wear protective clothing and use a sunscreen. Do not use sun lamps or tanning beds/booths. Contact your doctor if you get a sunburn. If you are a diabetic monitor your blood glucose carefully. If you get an unusual reading stop taking this medicine and call your doctor right away. Do not treat diarrhea with [id number] products. Contact your doctor if you have diarrhea that lasts more than 2 days or if the diarrhea is severe and watery. Avoid antacids, calcium, iron, and zinc products for 2 hours before and 2 hours after taking a dose of this medicine. Sulfamethoxazole, Trimethoprim Oral tablet What is this medicine? SULFAMETHOXAZOLE; TRIMETHOPRIM or SMX-TMP (suhl fuh meth OK david zohl; trye METH oh prim) is a combination of a sulfonamide antibiotic and a second antibiotic, trimethoprim. It is used to treat or prevent certain kinds of bacterial infections. It will not work for colds, flu, or other viral infections. How should I use this medicine? Take this medicine by mouth with a full glass of water. Follow the directions on the prescription label. Take your medicine at regular intervals. Do not take it more often than directed. Do not skip doses or stop your medicine early. Talk to your lease examiner regarding the use of this medicine in children. Special care may be needed. This medicine has been used in children as young as 2 months of age. What side effects may I notice from receiving this medicine? Side effects that you should report to your doctor or health long term care social worker as soon as possible: allergic reactions like skin rash or hives, swelling of the face, lips, or tongue breathing problems fever or chills, sore throat irregular heartbeat, chest pain joint or muscle pain pain or difficulty passing urine red pinpoint spots on skin redness, blistering, peeling or loosening of the skin, including inside the mouth unusual bleeding or bruising unusually weak or tired yellowing of the eyes or skin Side effects that usually do not require medical attention (report to your doctor or health long term care social worker if they continue or are bothersome): diarrhea dizziness headache loss of appetite nausea, vomiting nervousness What may interact with this medicine? Do not take this medicine with any of the following medications: aminobenzoate potassium dofetilide metronidazole This medicine may also interact with the following medications: JORJE inhibitors like benazepril, enalapril, lisinopril, and ramipril cyclosporine digoxin diuretics indomethacin medicines for diabetes methenamine methotrexate phenytoin potassium supplements pyrimethamine sulfinpyrazone tricyclic antidepressants warfarin What if I miss a dose? If you miss a dose, take it as soon as you can. If it is almost time for your next dose, take only that dose. Do not take double or extra doses. Where should I keep my medicine? Keep out of the reach of children. Store at room temperature between 20 to 25 degrees C (68 to 77 degrees F). Protect from light. Throw away any unused medicine after the expiration date. What should I tell my health care provider before I take this medicine? They need to know if you have any of these conditions: anemia asthma being treated with anticonvulsants if you frequently drink alcohol containing drinks kidney disease liver disease low level of folic acid or [id number] dehydrogenase poor nutrition or malabsorption porphyria severe allergies thyroid disorder an unusual or allergic reaction to sulfamethoxazole, trimethoprim, sulfa drugs, other medicines, foods, dyes, or preservatives or trying to get breast-feeding What should I watch for while using this medicine? Tell your doctor or health long term care social worker if your symptoms do not improve. Drink several glasses of water a day to reduce the risk of kidney problems. Do not treat diarrhea with over the counter products. Contact your doctor if you have diarrhea that lasts more than 2 days or if it is severe and watery. This medicine can make you more sensitive to the sun. Keep out of the sun. If you cannot avoid being in the sun, wear protective clothing and use a sunscreen. Do not use sun lamps or tanning beds/booths. Oxycodone Hydrochloride, Acetaminophen Oral tablet What is this medicine? ACETAMINOPHEN; OXYCODONE (a set a AYESHA stacy fen; ox i KOE done) is a pain reliever. It is used to treat mild to moderate pain. How should I use this medicine? Take this medicine by mouth with a full glass of water. Follow the directions on the prescription label. Take your medicine at regular intervals. Do not take your medicine more often than directed. Talk to your lease examiner regarding the use of this medicine in children. Special care may be needed. Patients over 65 years old may have a stronger reaction and need a smaller dose. What side effects may I notice from receiving this medicine? Side effects that you should report to your doctor or health long term care social worker as soon as possible: allergic reactions like skin rash, itching or hives, swelling of the face, lips, or tongue breathing difficulties, wheezing confusion light headedness or fainting spells severe stomach pain yellowing of the skin or the whites of the eyes Side effects that usually do not require medical attention (report to your doctor or health long term care social worker if they continue or are bothersome): dizziness drowsiness nausea vomiting What may interact with this medicine? alcohol antihistamines barbiturates like amobarbital, butalbital, butabarbital, methohexital, pentobarbital, phenobarbital, thiopental, and secobarbital benztropine drugs for bladder problems like solifenacin, trospium, oxybutynin, tolterodine, hyoscyamine, and methscopolamine drugs for breathing problems like ipratropium and tiotropium drugs for certain stomach or intestine problems like propantheline, homatropine methylbromide, glycopyrrolate, atropine, belladonna, and dicyclomine general anesthetics like etomidate, ketamine, nitrous oxide, propofol, desflurane, enflurane, halothane, isoflurane, and sevoflurane medicines for depression, anxiety, or psychotic disturbances medicines for sleep muscle relaxants naltrexone narcotic medicines (opiates) for pain phenothiazines like perphenazine, thioridazine, chlorpromazine, mesoridazine, fluphenazine, prochlorperazine, promazine, and trifluoperazine scopolamine tramadol trihexyphenidyl What if I miss a dose? If you miss a dose, take it as soon as you can. If it is almost time for your next dose, take only that dose. Do not take double or extra doses. Where should I keep my medicine? Keep out of the reach of children. This medicine can be abused. Keep your medicine in a safe place to protect it from theft. Do not share this medicine with anyone. Selling or giving away this medicine is dangerous and against the law. Store at room temperature between 20 and 25 degrees C (68 and 77 degrees F). Keep container tightly closed. Protect from light. This medicine may cause accidental overdose and if it is taken by other adults, children, or pets. Flush any unused medicine down the toilet to reduce the chance of harm. Do not use the medicine after the expiration date. What should I tell my health care provider before I take this medicine? They need to know if you have any of these conditions: brain tumor Crohn's disease, inflammatory bowel disease, or ulcerative colitis drink more than 3 alcohol containing drinks per day drug abuse or addiction head injury heart or circulation problems kidney disease or problems going to the bathroom liver disease lung disease, asthma, or breathing problems an unusual or allergic reaction to acetaminophen, oxycodone, other opioid analgesics, other medicines, foods, dyes, or preservatives or trying to get breast-feeding What should I watch for while using this medicine? Tell your doctor or health long term care social worker if your pain does not go away, if it gets worse, or if you have new or a different type of pain. You may develop tolerance to the medicine. Tolerance means that you will need a higher dose of the medication for pain relief. Tolerance is normal and is expected if you take this medicine for a long time. Do not suddenly stop taking your medicine because you may develop a severe reaction. Your body becomes used to the medicine. This does NOT mean you are addicted. Addiction is a behavior related to getting and using a drug for a non-medical reason. If you have pain, you have a medical reason to take pain medicine. Your doctor will tell you how much medicine to take. If your doctor wants you to stop the medicine, the dose will be slowly lowered over time to avoid any side effects. You may get drowsy or dizzy. Do not drive, use machinery, or do anything that needs mental alertness until you know how this medicine affects you. Do not stand or sit up quickly, especially if you are an older patient. This reduces the risk of dizzy or fainting spells. Alcohol may interfere with the effect of this medicine. Avoid alcoholic drinks. There are different types of narcotic medicines (opiates) for pain. If you take more than one type at the same time, you may have more side effects. Give your health care provider a list of all medicines you use. Your doctor will tell you how much medicine to take. Do not take more medicine than directed. Call emergency for help if you have problems breathing. The medicine will cause constipation. Try to have a bowel movement at least every 2 to 3 days. If you do not have a bowel movement for 3 days, call your doctor or health long term care social worker. Do not take Tylenol (acetaminophen) or medicines that have acetaminophen with this medicine. Too much acetaminophen can be very dangerous. Many nonprescription medicines contain acetaminophen. Always read the labels carefully to avoid taking more acetaminophen. You have been given the following additional information: Pneumonia (Adult) Levofloxacin Oral tablet Sulfamethoxazole, Trimethoprim Oral tablet Oxycodone Hydrochloride, Acetaminophen Oral tablet No strenuous activity. Rest. (Electronically signed by Telly eJan MD 06/18/2016 23:21)
--- NOTE | 2016-06-18 23:21 | ED MAR SUMMARY ---
..... Medication Administration Record [facility] [address] [place] [address] Patient: RIANA HYDE Visit ID: [id number] 51y, F Weight: 56.6 kg Height/Length: 66 in BMI: 20.1 ALLERGIES: Codeine, Neomycin Sulfate, PCN Given 14:12 06/15/2016 Marion Wilkins, Medication Administered: DUONEB [NEB TX] (IPRATROPIUM-ALBUTEROL), Dose: 1 unit dose Nebulizer Neb TX. Medication Ordered: DuoNeb Neb Tx 1 unit dose (NOW). Given 14:37 06/15/2016 Sushila Gardner R.N. Medication Administered: TORADOL [IVP], Dose: 30 mg IVP over 1 minute(s), Site: #1 left forearm. Medication Ordered: Toradol IV 30 mg (NOW). Start 14:37 06/15/2016 Sushila Gardner R.N., Stop 19:44 06/15/2016 Sushila Gardner R.N. Medication Administered: IV NS (SALINE), Dose: IV Fluids over 1 hour(s), Rate: 500 mL/hr, Dispensed: 1000 mL bag, Site: #1 left forearm. Medication Ordered: IV NS : initial bolus 500 mL (1000 mL/hr), then 150 mL/hr for 4h (NOW); Routine. Start 18:36 06/15/2016 Sushila Gardner R.N., Stop 20:03 06/15/2016 Sushila Gardner R.N. Medication Administered: LEVAQUIN [IVPB] (LEVOFLOXACIN), Dose: 750 mg IVPB over 1.5 hour(s), Rate: 100 mL/hr, Dispensed: 100 mL bag, Site: #2 right forearm. Medication Ordered: Levaquin IV 750 mg/150 mL (NOW). Given 18:37 06/15/2016 Sushila Gardner R.N. Medication Administered: DILAUDID [IVP] (HYDROMORPHONE HCL PF), Dose: 0.5 mg IVP over 1 minute(s), Site: #2 right forearm. Medication Ordered: Dilaudid IV 0.5 mg (NOW).
--- NOTE | 2016-06-18 23:21 | ED MED RECONCILIATION SUMMARY ---
Patient: RIANA HYDE Medication Reconciliation Report [facility] VisitID: [id number] [address] [place] [address] 51y, F Registration Date/Time: 06/15/2016 Weight: 56.6 kg Height/Length: 66 in. BMI: 20.1 ALLERGIES: Codeine, Neomycin Sulfate, PCN The patient's Home Medications are listed below: CONTINUE TAKING THE FOLLOWING MEDICATIONS: Albuterol Sulfate HFA Inhalation Albuterol Sulfate Inhalation Citalopram Hydrobromide Oral HydrOXYzine HCl Oral Neurontin Oral 200 mg am and 300 mg pm Qvar Inhalation The source(s) of the original Home Medication information: patient The following Medications were given to the patient in the Emergency Department: Duoneb [Neb Tx] Neb TX 1 unit dose, administered: 06/15/2016 2:12:00 PM Toradol [IVP] IVP 30 mg, administered: 06/15/2016 2:37:00 PM IV NS IV Fluids bolus 0, then 500 mL/hr, administered: 06/15/2016 2:37:00 PM Levaquin [IVPB] IVPB bolus 0, then 750 mg 100 mL/hr, administered: 06/15/2016 6:36:00 PM Dilaudid [IVP] IVP 0.5 mg, administered: 06/15/2016 6:37:00 PM The following Medications were prescribed to the patient: Levaquin 750 mg: take 1 tab orally every day for 10 days. No refills. Substitution is permissible. -- Telly Jean MD Septra DS: take 1 tablet orally every 12 hours for 10 days. No refill. Substitution is not permissible. -- Telly Jean MD Oxycodone/APAP 5 mg/325 mg: take 1-2 tablets orally every 4 hours as needed for pain. Dispense twenty-five (25). No refill.(Watch for constipation) -- Telly Jean MD Ibuprofen 600mg tablets: take 1 tablet orally every 8 hours as needed for pain. Dispense thirty (30). No refills. -- Telly Jean MD
== END 2016-06-15 20:09 | disposition home or self-care (01) ==
LOC: ED SRH 12:58
DX: J44.0 Chronic obstructive pulmonary disease with (acute) lower respiratory infection (principal); J15.9 Unspecified bacterial pneumonia; R09.1 Pleurisy; Z79.51 Long term (current) use of inhaled steroids; Z79.899 Other long term (current) drug therapy; Z88.5 Allergy status to narcotic agent; Z88.2 Allergy status to sulfonamides; Z88.0 Allergy status to penicillin
CPT/HCPCS: 90065; 90074; 90100; 91320; 91400; 91556; 92031; 93004; 95059

== ENCOUNTER 2016-06-26 15:15 | Outpatient (CLI) | payer OTHER ==
--- NOTE | 2016-06-26 15:55 | DIAGNOSTIC IMAGING REPORT ---
PROCEDURE: XR CHEST 2 VIEW INDICATION: RIGHT LUNG INFECTION TECHNIQUE: PA and lateral view. COMPARISON: Chest x-ray 06/15/2016 FINDINGS: Improved small right basilar infiltrate with residual atelectasis versus scarring. Left lung is clear. Hyperinflation. Cardiovascular structures are normal. Bony thorax is unremarkable. IMPRESSION: 1. Improved small right basilar infiltrate with residual atelectasis versus scarring 2. Hyperinflation suggestive of COPD
== END 2016-06-26 23:00 ==
LOC: XR SRH 15:15
DX: R91.8 Other nonspecific abnormal finding of lung field (principal)

== ENCOUNTER 2016-08-12 09:35 | Outpatient (CLI) | payer OTHER ==
--- NOTE | 2016-08-12 10:19 | DIAGNOSTIC IMAGING REPORT ---
PROCEDURE: XR CHEST 2 VIEW INDICATION: PNEUMONIA OF R LUNG DUE TO INFECTIOUS ORGANISM TECHNIQUE: PA and lateral views. COMPARISON: Chest 06/26/2016 and 06/15/2016 FINDINGS: Lungs are clear. Heart and mediastinum are normal. Thorax is normal. IMPRESSION: 1. No residual infiltrate. Lungs clear.
== END 2016-08-12 23:00 ==
LOC: XR SRH 09:35
DX: J18.9 Pneumonia, unspecified organism (principal)

== ENCOUNTER 2016-09-08 19:31 | Emergency (ER) | payer OTHER ==
--- NOTE | 2016-09-08 21:22 | DIAGNOSTIC IMAGING REPORT ---
PROCEDURE: XR CHEST 2 VIEW INDICATION: COUGH TECHNIQUE: PA and lateral view. COMPARISON: Chest x-ray 08/12/2016. FINDINGS: Lungs are clear. Cardiovascular structures are normal. Moderate degenerative changes of the lower thoracic spine. IMPRESSION: 1. Negative chest.
--- NOTE | 2016-09-08 21:25 | ED ORDER SUMMARY ---
..... Patient: RIANA HYDE OrderSheet [facility] VisitID: [id number] [address] [place] [address] 51y, F Registration Date/Time: 09/08/2016 ORDER SHEET Weight: 56.6 kg (stated) Allergies: Codeine, Neomycin Sulfate, PCN GENERAL ORDERS: Chest 2V Urgent (20:30 09/08/2016 Shivani AN) (Ack 20:33 CHagrhianna ER Jigmaker) (20:34 Thai) MEDICATION ORDERS: DuoNeb Neb Tx 1 unit dose (NOW) (20:29 09/08/2016 Shivani AN) (Ack 20:32 Aaron ER Jigmaker) (20:43 Jayesh) Zithromax PO 500 mg (NOW) (20:49 09/08/2016 Shivani AN) (Ack 20:57 JDeElena R.N.) (21:00 JDeElena R.N.) IV FLUIDS: ORDER SHEET NOTES: [Electronically signed by Penelope Urbina MD (21:40 09/08/2016)] [Electronically signed by Cece Benavidez R.N. (21:42 09/08/2016)] [Electronically locked/signed by Cece Benavidez R.N. (21:42 09/08/2016)]
--- NOTE | 2016-09-08 21:25 | ED NURSING NOTES ---
Clinical Report - Nurses [facility] [address] [place] [address] 09/08/2016 19:32 Patient: RIANA HYDE TRIAGE Triage time 19:47. Acuity: LEVEL 3. Chief Complaint: WHEEZING and FEVER (Weakness, tired, no energy). Alert. No acute distress. --19:54 Cece Benavidez R.N. 19:47 09/08/16. BP: 127/90. HR: 88. RR: 20. O2 saturation: 99%. Temp: 97.6 F. Pain level now: 07/19. --19:54 Cece Benavidez R.N. 19:47 09/08/16. BP: 127/90. HR: 88. RR: 20. O2 saturation: 99%. Temp: 97.6 F. Pain level now: 07/19. --19:54 Cece Benavidez R.N. Weight: 56.6 kg stated. Height/Length: 66 inches Per Patient. BMI: 20.1. --19:52 Cece Benavidez R.N. Medications Albuterol Sulfate HFA Inhalation. Albuterol Sulfate Inhalation. Qvar Inhalation. --19:49 Cece Benavidez R.N. Harvoni for hepc. --19:50 Cece Benavidez R.N. Medication/allergy information source: the patient. --19:54 Cece Benavidez R.N. Allergies Codeine. Definite Severe(Anaphylaxis) Neomycin Sulfate. Definite Severe(Anaphylaxis) PCN. Definite Severe(Anaphylaxis) --19:49 Cece Benavidez R.N. History Arrived by private vehicle. Historian: patient. Primary physician (chc). Onset. (4 days ago, recent pneumonia with antibiotics.). Treatment BRICK OFFBEARER: None. PAST MEDICAL HX: Immunizations: status is unknown. Last normal menstrual period now. SOCIAL HX: Light tobacco smoker (cigarette)- less than 1/2 a pack per day. History of drug use: marijuana. (months 2). No alcohol use. No infectious disease exposure. ABUSE ASSESSMENT: No report of abuse. FALL RISK ASSESSMENT: Fall risk assessment completed. No fall risk identified. NUTRITIONAL RISK ASSESSMENT: The nutritional risk assessment revealed no deficiencies. FUNCTIONAL ASSESSMENT: Functional assessment: no impairments noted. LEARNING NEEDS ASSESSMENT: The learning needs assessment revealed no barriers. SKIN INTEGRITY ASSESSMENT: Skin integrity risk assessment completed. No skin integrity risk identified. --19:54 Cece Benavidez R.N. PROBLEMS: Hep c . Pneumonia. Abscess. Abrasion(s). Puncture Wound. Animal Bite. Anxiety Reaction. Bronchitis. COPD - Chronic Obstructive Pulmonary Disease. --19:51 Cece Benavidez R.N. Shoulder Injury. Back Pain. --19:53 Cece Benavidez R.N. The following entry was modified by Penelope Urbina MD, 21:38 Reason - duplicate <<STRICKEN ENTRY-- Lung Disease. --16:41 Penelope Urbina MD --END STRIKE>>. ADDITIONAL SURGERIES: . Fracture Repair. Left arm surgery. --19:51 Cece Benavidez R.N. Interventions ID band on patient. To room. --19:54 Cece Benavidez R.N. PHYSICAL ASSESSMENT Ambulatory to room. Patient gowned. GENERAL / NEURO / PSYCH: Alert. Oriented X 4. Appears in no acute distress. HEENT: Mucous membranes are pink. RESPIRATORY: No respiratory distress. Respirations not labored. CVS: Capillary refill less than 2 seconds. GI / : Abdomen nontender. SKIN: Skin is warm and dry. Normal skin turgor. --19:54 Cece Benavidez R.N. NURSING PROGRESS NOTES Patient gowned. Head of bed elevated. Two patient identifiers checked. Call light placed in reach. Side rails up x 1. Bed placed in lowest position. Brakes of bed on. Patient ready for evaluation. --19:55 Cece Benavidez R.N. 20:43 09/08/2016 Duoneb (Ipratropium-Albuterol) Neb TX Nebulizer 1 unit dose given. Given by the respiratory therapist. Allergies verified and confirmed 5 rights. --20:43 Jennifer Hardin 21:00 09/08/2016 Zithromax PO Capsules 500 mg given. Allergies verified and confirmed 5 rights. --21:00 Fran Sorenson R.N. DISPOSITION / DISCHARGE 21:30. Condition at departure: unchanged. No learning barriers present. Reviewed medication(s) side effects, precautions, dosing and course information. Prescription(s) given to the patient. Patient verbalized understanding. Written instructions provided in Serbian. The patient was discharged home. She left the Emergency Department ambulatory and via private vehicle. Journal Box Inspector driving. Medication list reviewed and validated. --21:42 Cece Benavidez R.N. 21:39 09/08/16. BP: 120/78. HR: 78. RR: 20. O2 saturation: 100%. Temp: 97.8 F. Pain level now: 08/19. 20:41 09/08/16. BP: 121/80. HR: 80. RR: 20. O2 saturation: 100%. Temp: 97.8 F. Pain level now: 08/19. 19:47 09/08/16. BP: 127/90. HR: 88. RR: 20. O2 saturation: 99%. Temp: 97.6 F. Pain level now: 07/19. --21:42 Cece Benavidez R.N. Locked/Released at 09/08/2016 21:42 by Cece Benavidez R.N.
--- NOTE | 2016-09-08 21:25 | ED NURSING NOTES ---
Clinical Report - Nurses [facility] [address] [place] [address] 09/08/2016 19:32 Patient: RIANA HYDE TRIAGE Triage time 19:47. Acuity: LEVEL 3. Chief Complaint: WHEEZING and FEVER (Weakness, tired, no energy). Alert. No acute distress. --19:54 Cece Benavidez R.N. 19:47 09/08/16. BP: 127/90. HR: 88. RR: 20. O2 saturation: 99%. Temp: 97.6 F. Pain level now: 07/19. --19:54 Cece Benavidez R.N. 19:47 09/08/16. BP: 127/90. HR: 88. RR: 20. O2 saturation: 99%. Temp: 97.6 F. Pain level now: 07/19. --19:54 Cece Benavidez R.N. Weight: 56.6 kg stated. Height/Length: 66 inches Per Patient. BMI: 20.1. --19:52 Cece Benavidez R.N. Medications Albuterol Sulfate HFA Inhalation. Albuterol Sulfate Inhalation. Qvar Inhalation. --19:49 Cece Benavidez R.N. Harvoni for hepc. --19:50 Cece Benavidez R.N. Medication/allergy information source: the patient. --19:54 Cece Benavidez R.N. Allergies Codeine. Definite Severe(Anaphylaxis) Neomycin Sulfate. Definite Severe(Anaphylaxis) PCN. Definite Severe(Anaphylaxis) --19:49 Cece Benavidez R.N. History Arrived by private vehicle. Historian: patient. Primary physician (chc). Onset. (4 days ago, recent pneumonia with antibiotics.). Treatment [employer]: None. PAST MEDICAL HX: Immunizations: status is unknown. Last normal menstrual period now. SOCIAL HX: Light tobacco smoker (cigarette)- less than 1/2 a pack per day. History of drug use: marijuana. (months 2). No alcohol use. No infectious disease exposure. ABUSE ASSESSMENT: No report of abuse. FALL RISK ASSESSMENT: Fall risk assessment completed. No fall risk identified. NUTRITIONAL RISK ASSESSMENT: The nutritional risk assessment revealed no deficiencies. FUNCTIONAL ASSESSMENT: Functional assessment: no impairments noted. LEARNING NEEDS ASSESSMENT: The learning needs assessment revealed no barriers. SKIN INTEGRITY ASSESSMENT: Skin integrity risk assessment completed. No skin integrity risk identified. --19:54 Cece Benavidez R.N. PROBLEMS: Hep c . Pneumonia. Abscess. Abrasion(s). Puncture Wound. Animal Bite. Anxiety Reaction. Bronchitis. COPD - Chronic Obstructive Pulmonary Disease. --19:51 Cece Benavidez R.N. Shoulder Injury. Back Pain. --19:53 Cece Benavidez R.N. The following entry was modified by Penelope Urbina MD, 21:38 Reason - duplicate <<STRICKEN ENTRY-- Lung Disease. --16:41 Penelope Urbina MD --END STRIKE>>. ADDITIONAL SURGERIES: . Fracture Repair. Left arm surgery. --19:51 Cece Benavidez R.N. Interventions ID band on patient. To room. --19:54 Cece Benavidez R.N. PHYSICAL ASSESSMENT Ambulatory to room. Patient gowned. GENERAL / NEURO / PSYCH: Alert. Oriented X 4. Appears in no acute distress. HEENT: Mucous membranes are pink. RESPIRATORY: No respiratory distress. Respirations not labored. CVS: Capillary refill less than 2 seconds. GI / : Abdomen nontender. SKIN: Skin is warm and dry. Normal skin turgor. --19:54 Cece Benavidez R.N. NURSING PROGRESS NOTES Patient gowned. Head of bed elevated. Two patient identifiers checked. Call light placed in reach. Side rails up x 1. Bed placed in lowest position. Brakes of bed on. Patient ready for evaluation. --19:55 Cece Benavidez R.N. 20:43 09/08/2016 Duoneb (Ipratropium-Albuterol) Neb TX Nebulizer 1 unit dose given. Given by the respiratory therapist. Allergies verified and confirmed 5 rights. --20:43 Jennifer Hardin 21:00 09/08/2016 Zithromax PO Capsules 500 mg given. Allergies verified and confirmed 5 rights. --21:00 Fran Sorenson R.N. DISPOSITION / DISCHARGE 21:30. Condition at departure: unchanged. No learning barriers present. Reviewed medication(s) side effects, precautions, dosing and course information. Prescription(s) given to the patient. Patient verbalized understanding. Written instructions provided in Frisian. The patient was discharged home. She left the Emergency Department ambulatory and via private vehicle. Freight Forwarder driving. Medication list reviewed and validated. --21:42 Cece Benavidez R.N. 21:39 09/08/16. BP: 120/78. HR: 78. RR: 20. O2 saturation: 100%. Temp: 97.8 F. Pain level now: 08/19. 20:41 09/08/16. BP: 121/80. HR: 80. RR: 20. O2 saturation: 100%. Temp: 97.8 F. Pain level now: 08/19. 19:47 09/08/16. BP: 127/90. HR: 88. RR: 20. O2 saturation: 99%. Temp: 97.6 F. Pain level now: 07/19. --21:42 Cece Benavidez R.N. Locked/Released at 09/08/2016 21:42 by Cece Benavidez R.N.
--- NOTE | 2016-09-08 21:25 | ED ORDER SUMMARY ---
..... Patient: RIANA HYDE OrderSheet [facility] VisitID: [id number] [address] [place] [address] 51y, F Registration Date/Time: 09/08/2016 ORDER SHEET Weight: 56.6 kg (stated) Allergies: Codeine, Neomycin Sulfate, PCN GENERAL ORDERS: Chest 2V Urgent (20:30 09/08/2016 Shivani AN) (Ack 20:33 CHagrhianna ER Electronic Development Technician) (20:34 Thai) MEDICATION ORDERS: DuoNeb Neb Tx 1 unit dose (NOW) (20:29 09/08/2016 Shivani AN) (Ack 20:32 Aaron ER Electronic Development Technician) (20:43 Jayesh) Zithromax PO 500 mg (NOW) (20:49 09/08/2016 Shivani AN) (Ack 20:57 JDeElena R.N.) (21:00 JDeElena R.N.) IV FLUIDS: ORDER SHEET NOTES: [Electronically signed by Penelope Urbina MD (21:40 09/08/2016)] [Electronically signed by Cece Benavidez R.N. (21:42 09/08/2016)] [Electronically locked/signed by Cece Benavidez R.N. (21:42 09/08/2016)]
--- NOTE | 2016-09-08 21:25 | ED CLINICAL REPORT ---
Clinical Report - Physicians/Mid Levels [facility] [address] [place] [address] 09/08/2016 19:32 Patient: RIANA HYDE Time Seen: 19:38. Arrived- By private vehicle. Historian- patient. HISTORY OF PRESENT ILLNESS Chief Complaint: COUGH. This started several days ago although patient feels that the pneumonia she had last month never entirely went away. and is still present. The illness is described as moderate. The patient has had sputum production and a cough. She has had difficulty breathing (Patient has been short of breath and wheezing. She has been using her inhalers and nebulizer treatments heavily, but states they do not seem to be helping.). She has had chest discomfort (Patient states she has been of pain going across her anterior chest inferiorly on both sides. She states she also has a pain near her left shoulder blade). She has had fever (Patient has had subjective fevers.). No muscle aches, chills, sore throat or hoarseness. No nasal congestion or discharge, sinus pressure, sinus drainage or ear pain. Additional history - No known contact with a sick individual. Similar symptoms previously: Recent medical care: Not recently seen/assessed. REVIEW OF SYSTEMS No headache, eye discomfort, nausea, vomiting or diarrhea. No abdominal pain, hay fever, pedal edema, calf pain or difficulty with urination. No skin rash, enlarged lymph nodes or joint pain. Denies current . All systems otherwise negative, except as recorded above. PAST HISTORY Problems: Hep c . Pneumonia. Abscess. Tetanus Status. Anxiety Reaction. COPD - Chronic Obstructive Pulmonary Disease. Immunizations. LNMP - Last Normal Menstrual Period. Additional Surgeries: . Fracture Repair. Left arm surgery. Medications: Harvoni for hepc. Albuterol Sulfate HFA Inhalation. Albuterol Sulfate Inhalation. Qvar Inhalation. Allergies: Codeine. Definite Severe(Anaphylaxis) Neomycin Sulfate. Definite Severe(Anaphylaxis) PCN. Definite Severe(Anaphylaxis). SOCIAL HISTORY Smoker- current status unknown. History of drug use: marijuana. No alcohol use. ADDITIONAL NOTES The nursing notes have been reviewed. PHYSICAL EXAM Vital Signs: 09/08/2016 19:47 BP: 127/90. HR: 88. RR: 20. O2 saturation: 99%. Temp: 97.6 F. Pain level now: 07/19. Have been reviewed. Appearance: Alert. No acute distress. Eyes: Pupils equal, round and reactive to light. Eyes normal inspection. ENT: Nose normal. Neck: Normal inspection. Neck supple. CVS: Normal heart rate and rhythm. Heart sounds normal. Pulses normal. Respiratory: No respiratory distress. Expiratory mild bilateral wheezes diffusely. Moderate bilateral rhonchi present diffusely. Abdomen: Soft and nontender. No organomegaly. Back: Normal inspection. No CVA tenderness. Skin: Skin warm and dry. Normal skin color. No rash. Normal skin turgor. Extremities: Extremities exhibit normal ROM. No lower extremity edema. Neuro: Oriented X 3. No motor deficit. No sensory deficit. LABS, X-RAYS, AND EKG Chest X-ray: No acute disease. Normal lung markings present. Normal heart size. Mediastinum normal. Great vessels normal. Soft tissues normal. No infiltrate. No fracture. No bony lesion present. Views: PA and lateral. Technique: good. The X-rays were independently viewed by me and interpreted contemporaneously by me. A comparison with prior films reveals that the findings are unchanged. Pulse Oximetry: 09/08/2016 19:47 O2 saturation: 99%. (FIO2 - room air). Interpretation: normal. PROGRESS AND PROCEDURES Course of Care: The patient was given a DuoNeb treatment and sent for a chest x-ray. This did not show pneumonia. Patient was treated with Zithromax for her bronchitis. Patient counseled in person regarding the patient's stable condition, test results, diagnosis and need for follow-up. Concerns were addressed. Old medical records reviewed. Disposition: Discharged. Condition: stable. CLINICAL IMPRESSION Acute bacterial bronchitis. INSTRUCTIONS Drink plenty of fluids. (Your x-ray does not show pneumonia at this time. You will be treated for bronchitis.). Warnings: GENERAL WARNINGS: Return or contact your physician immediately if your condition worsens or changes unexpectedly, if not improving as expected, or if other problems arise. Your Current Medications: CONTINUE TAKING THE FOLLOWING MEDICATIONS: Albuterol Sulfate HFA Inhalation. Albuterol Sulfate Inhalation. Harvoni for hepc*. Qvar Inhalation. Prescription Medications: Zithromax Z-Flaco: Take according to package instructions 2 orally today, followed by 1 orally every day for the next 4 days. Total course 5 days. No refills. Substitution is permissible. Follow-up: Follow up with your doctor in about one week if not better. Understanding of the discharge instructions verbalized by patient. (Electronically signed by Penelope Urbina MD 09/08/2016 21:40)
--- NOTE | 2016-09-08 21:42 | ED MAR SUMMARY ---
..... Medication Administration Record [facility] [address] [place] [address] Patient: RIANA HYDE Visit ID: [id number] 51y, F Weight: 56.6 kg Height/Length: 66 in BMI: 20.1 ALLERGIES: Codeine, Neomycin Sulfate, PCN Given 20:43 09/08/2016 Jennifer Hardin, Medication Administered: DUONEB [NEB TX] (IPRATROPIUM-ALBUTEROL), Dose: 1 unit dose Nebulizer Neb TX. Medication Ordered: DuoNeb Neb Tx 1 unit dose (NOW). Given 21:00 09/08/2016 Fran Sorenson R.N. Medication Administered: ZITHROMAX [PO], Dose: 500 mg Capsules PO. Medication Ordered: Zithromax PO 500 mg (NOW).
--- NOTE | 2016-09-08 21:42 | ED MAR SUMMARY ---
..... Medication Administration Record [facility] [address] [place] [address] Patient: RIANA HYDE Visit ID: [id number] 51y, F Weight: 56.6 kg Height/Length: 66 in BMI: 20.1 ALLERGIES: Codeine, Neomycin Sulfate, PCN Given 20:43 09/08/2016 Jennifer Hardin, Medication Administered: DUONEB [NEB TX] (IPRATROPIUM-ALBUTEROL), Dose: 1 unit dose Nebulizer Neb TX. Medication Ordered: DuoNeb Neb Tx 1 unit dose (NOW). Given 21:00 09/08/2016 Fran Sorenson R.N. Medication Administered: ZITHROMAX [PO], Dose: 500 mg Capsules PO. Medication Ordered: Zithromax PO 500 mg (NOW).
--- NOTE | 2016-09-08 21:42 | ED MED RECONCILIATION SUMMARY ---
Patient: RIANA HYDE Medication Reconciliation Report [facility] VisitID: [id number] [place] [address] 51y, F Registration Date/Time: 09/08/2016 Weight: 56.6 kg Height/Length: 66 in. BMI: 20.1 ALLERGIES: Codeine, Neomycin Sulfate, PCN The patient's Home Medications are listed below: CONTINUE TAKING THE FOLLOWING MEDICATIONS: Albuterol Sulfate HFA Inhalation Albuterol Sulfate Inhalation Harvoni for hepc Qvar Inhalation The source(s) of the original Home Medication information: patient The following Medications were given to the patient in the Emergency Department: Duoneb [Neb Tx] Neb TX 1 unit dose, administered: 09/08/2016 8:43:00 PM Zithromax [PO] PO 500 mg, administered: 09/08/2016 9:00:00 PM The following Medications were prescribed to the patient: Zithromax Z-Flaco: Take according to package instructions 2 orally today, followed by 1 orally every day for the next 4 days. Total course 5 days. No refills. Substitution is permissible. -- Penelope Urbina MD
--- NOTE | 2016-09-08 21:42 | ED MED RECONCILIATION SUMMARY ---
Patient: RIANA HYDE Medication Reconciliation Report [facility] VisitID: [id number] [place] [address] 51y, F Registration Date/Time: 09/08/2016 Weight: 56.6 kg Height/Length: 66 in. BMI: 20.1 ALLERGIES: Codeine, Neomycin Sulfate, PCN The patient's Home Medications are listed below: CONTINUE TAKING THE FOLLOWING MEDICATIONS: Albuterol Sulfate HFA Inhalation Albuterol Sulfate Inhalation Harvoni for hepc Qvar Inhalation The source(s) of the original Home Medication information: patient The following Medications were given to the patient in the Emergency Department: Duoneb [Neb Tx] Neb TX 1 unit dose, administered: 09/08/2016 8:43:00 PM Zithromax [PO] PO 500 mg, administered: 09/08/2016 9:00:00 PM The following Medications were prescribed to the patient: Zithromax Z-Flaco: Take according to package instructions 2 orally today, followed by 1 orally every day for the next 4 days. Total course 5 days. No refills. Substitution is permissible. -- Penelope Urbina MD
--- NOTE | 2016-09-08 21:42 | ED DISCHARGE INSTRUCTIONS ---
Patient: RIANA HYDE General Instructions [facility] VisitID: [id number] [place] [address] 51y, F Registration Date/Time: 09/08/2016 Acute bacterial bronchitis. INSTRUCTIONS Drink plenty of fluids. (Your x-ray does not show pneumonia at this time. You will be treated for bronchitis.). Warnings: GENERAL WARNINGS: Return or contact your physician immediately if your condition worsens or changes unexpectedly, if not improving as expected, or if other problems arise. Your Current Medications: CONTINUE TAKING THE FOLLOWING MEDICATIONS: Albuterol Sulfate HFA Inhalation. Albuterol Sulfate Inhalation. Harvoni for hepc*. Qvar Inhalation. Prescription Medications: Zithromax Z-Flaco: Take according to package instructions 2 orally today, followed by 1 orally every day for the next 4 days. Total course 5 days. No refills. Substitution is permissible. Follow-up: Follow up with your doctor in about one week if not better. Understanding of the discharge instructions verbalized by patient. ADDITIONAL INFORMATION Bronchitis (Adult: Abx Tx) BRONCHITIS is an infection of the air passages (bronchial tubes). It often occurs during the common cold. Symptoms include cough with mucus (phlegm) and low-grade fever. Bronchitis usually lasts 7-14 days. Mild cases can be treated with simple home remedies. More severe infection is treated with an antibiotic. Home Care: If symptoms are severe, rest at home for the first 2-3 days. When you resume activity, don't let yourself get too tired. Do not smoke. Avoid being exposed to the smoke of others. You may use acetaminophen (Tylenol) or ibuprofen (Motrin, Advil) to control fever or pain, unless another medicine was prescribed for this. [NOTE: If you have chronic liver or kidney disease or ever had a stomach ulcer or GI bleeding, talk with your doctor before using these medicines.] Your appetite may be poor, so a light diet is fine. Avoid dehydration by drinking 6-8 glasses of fluids per day (water, soft, drinks, juices, tea, soup, etc.). Extra fluids will help loosen secretions in the lungs. Wiyn-pgc-yoxaeid cough medicines that containdextromethorphan(such as Robitussin DM) and decongestants (Actifed or Sudafed) may help relieve cough and congestion. [NOTE: Do not use decongestants if you have high blood pressure.] Finish all antibiotic medicine, even if you are feeling better after only a few days. Follow Up with your doctor or as directed if you dont start to feel better after three days. [NOTE: If you are age 65 or older, or if you have chronic asthma or COPD, we recommend a PNEUMOCOCCAL VACCINATION every five years and a yearly INFLUENZAVACCINATION (FLU-SHOT) every . Ask your doctor about this. If you had an X-ray, a radiologist will review it. You will be notified of any new findings that may affect your care.] Get Prompt Medical Attention if any of the following occur: Fever over 100.4F (38.0C) for more than three days Trouble breathing, wheezing or pain with breathing Coughing up blood or increased amounts of colored sputum Weakness, drowsiness, headache, facial pain, ear pain or a stiff neck You have been given the following additional information: Bronchitis, Antiobiotic Treatment (Adult) (Electronically signed by Penelope Urbina MD 09/08/2016 21:40)
== END 2016-09-08 21:30 | disposition home or self-care (01) ==
LOC: ED SRH 19:31
DX: J20.8 Acute bronchitis due to other specified organisms (principal); Z79.899 Other long term (current) drug therapy; F17.219 Nicotine dependence, cigarettes, with unspecified nicotine-induced disorders; Z88.0 Allergy status to penicillin; Z88.1 Allergy status to other antibiotic agents; Z88.5 Allergy status to narcotic agent

== ENCOUNTER 2016-09-17 12:36 | Outpatient (CLI) | payer OTHER ==
--- NOTE | 2016-09-17 14:27 | DIAGNOSTIC IMAGING REPORT ---
PROCEDURE: MR UPPER EXTREMITY W/O CONT-RT INDICATION: RIGHT SHOULDER IMPINGEMENT TECHNIQUE: PD and FAT-SAT PD, axial, and coronal-oblique images. PD and STIR sagittal-oblique images. COMPARISON: None. FINDINGS: Caudal angulation of type 2 acromion resulting in mild impingement. Mild AC joint degenerative changes. There is a full-thickness insertional tear of the distal supraspinatus tendon anteriorly (14 mm AP). This is also associated with an intrasubstance tear of the distal supraspinatus tendon. There is a small associated subdeltoid bursal effusion. The glenoid labrum within normal limits. Normal glenohumeral ligaments. Tendinosis of the long head of the bicipital tendon. Normal muscles. No suspicious osseous lesion. IMPRESSION: 1. Mild encounter 2. Full-thickness insertional tear of the distal supraspinatus tendon (14 mm AP) associated intrasubstance tear 3. Small subdeltoid bursal effusion 4. Bicipital tendon long head tendinosis
== END 2016-09-17 23:00 ==
LOC: MRI SRH 12:36
DX: S46.811A Strain of other muscles, fascia and tendons at shoulder and upper arm level, right arm, initial encounter (principal); M25.411 Effusion, right shoulder; M75.21 Bicipital tendinitis, right shoulder

== ENCOUNTER 2016-10-11 10:58 | Outpatient (CLI) | payer OTHER | END 2016-10-11 23:00 | LOC: LAB SRH 10:58 | DX: B18.2 Chronic viral hepatitis C (principal) | CPT/HCPCS: 90074; 94135 ==